=== PATIENT | male | born 1945 | race Asian ===

== ENCOUNTER → 2023-12-14 | Outpatient (REF) | payer MEDICARE | LOC: RAD 08:48 | PROVIDERS: ATTEND Internal Medicine | DX: M75.01 Adhesive capsulitis of right shoulder (principal) ==

== ENCOUNTER → 2024-03-22 | Outpatient (REF) | payer MEDICARE | LOC: RAD 11:12 | PROVIDERS: ATTEND Internal Medicine | DX: S43.491A Other sprain of right shoulder joint, initial encounter (principal); M43.07 Spondylolysis, lumbosacral region | CPT/HCPCS: 72110 ==